=== PATIENT | male | born 1990 | race Hispanic/Latino ===

== ENCOUNTER 2020-08-18 10:34 | Emergency (ER) | payer SELFPAY ==
[~2020-08-18] VITALS: Ht 165.1 cm; Wt 62.0 kg
[2020-08-18 14:25] VITALS: BP 126/83
== END 2020-08-18 14:25 | disposition home or self-care (01) | DRG 563 ==
LOC: ED 10:34
PROC: 2W3TX1Z Immobilization of Left Foot using Splint (ICD-10-PCS; principal; 2020-08-18)
DX: S92.315A Nondisplaced fracture of first metatarsal bone, left foot, initial encounter for closed fracture (principal); S92.325A Nondisplaced fracture of second metatarsal bone, left foot, initial encounter for closed fracture; V18.0XXA Pedal cycle driver injured in noncollision transport accident in nontraffic accident, initial encounter; Y93.55 Activity, bike riding; Y92.410 Unspecified street and highway as the place of occurrence of the external cause